=== PATIENT | male | born 1960 | race American Indian/Alaskan Native ===

== ENCOUNTER 2020-05-14 09:12 | Emergency (ER) | payer OTHER ==
--- NOTE | 2020-05-14 09:26 | Emergency Department Report ---
Upper Extremity - HPI Chief Complaint: Shoulder Injury Stated Complaint: LEFT SHOULDER PAIN X 2 DAYS Time Seen by Provider: 05/14/20 09:22 Upper Extremity: Left Shoulder Occurred When: 3 Days Mechanism: Unsure Severity: moderate Symptoms: Yes Pain with Movement, No Deformity, No Limited Range of Movement, No Numbness, No Weakness, No Swelling, No Bruising/Ecchymosis, No Laceration or Abrasion Other History: 59-year-old male presents to the emergency room for left shoulder pain for day #3. Patient denies any injury has not taken anything for pain. Patient does have a primary care provider and chose not to follow-up. Currently no past medical history takes no medications on a daily basis. ED Review of Systems ROS: Stated complaint: LEFT SHOULDER PAIN X 2 DAYS Other details as noted in HPI Comment: All other systems reviewed and negative ED Past Medical Hx - Past Medical History Previous Medical History?: No - Surgical History Past Surgical History?: No - Social History Smoking Status: Never Smoker Substance Use Type: None - Medications Home Medications: Home Medications Medication Instructions Recorded Confirmed Last Taken Type Ibuprofen [Motrin 600 MG tab] 600 mg PO Q8H PRN #20 tablet 05/14/20 Unknown Rx Upper Extremity Exam - Exam General: Vital signs noted. No distress. Alert and acting appropriately. Head and Torso: No HEENT Abnormality, No Neck Tenderness, No Chest/Lungs Abnormality, No Abdominal Tenderness, No Back Tenderness Shoulder Exam: Yes Shoulder Tenderness, No Clavicle Tenderness, No Shoulder Deformity, No AC Joint Tenderness Arm Exam: No Arm/Humerus Tenderness, No Arm Deformity Elbow: No Elbow Tenderness, No Normal Range of Motion in Elbow, No Elbow Deformity Forearm: No Forearm Tenderness, No Forearm Deformity, No Pain with Pronation, No Pain with Supination Wrist: Yes Normal ROM in Wrist, No Wrist Tenderness, No Wrist Deformity, No Snuffbox Tenderness, No Pain with Axial Thumb Compression Hand: Yes Normal ROM in Digit(s), No Hand Tenderness, No Hand Deformity, No Digit Tenderness, No Digit(s) Deformity, No Tendon Dysfunction CMS Exam: No Broken Skin, No Normal Distal Pulses, No Normal Capillary Refill, No Normal Distal Sensation ED Course Vital Signs 05/14/20 09:18 Temperature 98 F Pulse Rate 65 Respiratory 16 Rate Blood Pressure 146/76 O2 Sat by Pulse 100 Oximetry ED Medical Decision Making - Radiology Data Radiology results: report reviewed UKANDU, TEMO C (59 years male) 1960 Contact [address] [place] [id number] XR (1) - XR shoulder 2+V LT Referred by DANIELLA MARTIN Study date May 14, 2020 09:28 Acc num [id number] Final Report Left shoulder 3 views INDICATION: Pain FINDINGS: Glenohumeral joint and AC joint appear intact. No acute fracture or dislocation. No soft tissue abnormality. Signer Name: Felix Fall MD Signed: 05/14/2020 9:12 AM Workstation Name: [employer] Dictated May 14, 2020 09:12 Felix Fall ([email or web address]) Transcribed Patient's Clinical History Left shoulder pain MAIN - Medical Decision Making 59-year-old male presents to the emergency room for left shoulder pain for day #3. Patient denies any injury has not taken anything for pain. Patient does have a primary care provider and chose not to follow-up. Currently no past medical history takes no medications on a daily basis. X-rays ordered. Critical care attestation.: If time is entered above; I have spent that time in minutes in the direct care of this critically ill patient, excluding procedure time. ED Disposition Clinical Impression: Left shoulder strain Qualifiers: Encounter type: initial encounter Qualified Code(s): S46.912A - Strain of unspecified muscle, fascia and tendon at shoulder and upper arm level, left arm, initial encounter Biceps muscle strain Qualifiers: Encounter type: initial encounter Laterality: left Qualified Code(s): S46.212A - Strain of muscle, fascia and tendon of other parts of biceps, left arm, initial encounter Disposition: DC-01 TO HOME OR SELFCARE Is pt being admited?: No Does the pt Need Aspirin: No Condition: Stable Instructions: Muscle Strain, [id number] Additional Instructions: X-ray is negative for any acute findings. I recommend to follow-up with an orthopedic provider I reviewed you may need further adjustments studies and evaluation. Tylenol or ibuprofen for pain management. Prescriptions: Ibuprofen [Motrin 600 MG tab] 600 mg PO Q8H PRN #20 tablet PRN Reason: Pain Referrals: PRIMARY CARE, [Referring] - 3-5 Days ARMANDO BERNSTEIN MD [Staff Physician] - 3-5 Days Forms: Work/School Release Form(ED)
[2020-05-14 09:27] VITALS: BP 146/76
--- NOTE | 2020-05-14 10:17 | XRay Report ---
Left shoulder 3 views INDICATION: Pain FINDINGS: Glenohumeral joint and AC joint appear intact. No acute fracture or dislocation. No soft ti ssue abnormality. Signer Name: Felix Fall MD Signed: 05/14/2020 10:12 AM Workstation Name: [email or web address]
== END 2020-05-14 10:46 | disposition home or self-care (01) ==
LOC: ED 09:12
DX: S46.912A Strain of unspecified muscle, fascia and tendon at shoulder and upper arm level, left arm, initial encounter (principal); S46.212A Strain of muscle, fascia and tendon of other parts of biceps, left arm, initial encounter; Z79.899 Other long term (current) drug therapy; X58.XXXA Exposure to other specified factors, initial encounter; Y93.89 Activity, other specified; Y92.89 Other specified places as the place of occurrence of the external cause; Y99.8 Other external cause status
CPT/HCPCS: 99283